=== PATIENT | male | born 1965 | race Caucasian/White ===

== ENCOUNTER → 2016-10-15 | Outpatient (CLI) | payer BC, OTHER ==
[~2016-10-15] VITALS: Ht 185.4 cm; Wt 99.8 kg
[~2016-10-15] MED LIST: NS 1,000 ML IV SCH; PROPOFOL 200 MG/20 ML VIAL As Ordered ONE; no medications
--- NOTE | 2016-10-15 13:58 | ROOR ---
Patient Name: Jose Luis Tilley Procedure Date: 10/15/2016 1:46 PM Date of : 1965 Age: 50 Room: [facility] Gender: Male Note Status: Finalized Procedure: Upper GI endoscopy Indications: Oropharyngeal phase dysphagia, Globus sensation Providers: Marquez ROSARIO MD Referring MD: Shon Allison MD Requesting Provider: Medicines: Monitored Anesthesia Care Complications: No immediate complications. Procedure: Pre-Anesthesia Assessment: - The heart rate, respiratory rate, oxygen saturations, blood pressure, adequacy of pulmonary ventilation, and response to care were monitored throughout the procedure. The Endoscope was introduced through the mouth, and advanced to the second part of duodenum. The upper GI endoscopy was accomplished without difficulty. The patient tolerated the procedure well. Findings: A low-grade of narrowing Schatzki ring (acquired) was found at the gastroesophageal junction. A TTS dilator was passed through the scope. Dilation with an 18-19-20 mm x 8 cm CRE balloon dilator was performed to 18 mm. The dilation site was examined and showed complete resolution of luminal narrowing. Estimated blood loss was minimal. Mucosal changes including longitudinal furrows were found in the entire esophagus. Biopsies were taken with a cold forceps for histology. Small Hiatal Hernia. The entire examined stomach was normal. The examined duodenum was normal. Impression: - Low-grade of narrowing Schatzki ring. Dilated. - Esophageal mucosal changes suggestive of eosinophilic esophagitis. Biopsied. - Small Hiatal Hernia. - Normal stomach. - Normal examined duodenum. Recommendation: - Use Prilosec (omeprazole) 40 mg PO BID. - Telephone endoscopist for pathology results in 2 weeks. - (the script was sent to your pharmacy on file) Marquez Rosario MD Marquez ROSARIO MD 10/15/2016 1:58:46 PM This report has been signed electronically. Number of Addenda: 0 Note Initiated On: 10/15/2016 1:46 PM Estimated Blood Loss: Estimated blood loss: none.
--- NOTE | 2016-10-15 14:07 | ROOR ---
Patient Name: Jose Luis Tilley Procedure Date: 10/15/2016 1:47 PM Date of : 1965 Age: 50 Room: [facility] Gender: Male Note Status: Finalized Procedure: Colonoscopy Indications: Screening for colorectal malignant neoplasm Providers: Marquez ROSARIO MD Referring MD: Shon Allison MD Requesting Provider: Medicines: Monitored Anesthesia Care Complications: No immediate complications. Procedure: Pre-Anesthesia Assessment: - The heart rate, respiratory rate, oxygen saturations, blood pressure, adequacy of pulmonary ventilation, and response to care were monitored throughout the procedure. The Colonoscope was introduced through the anus and advanced to the cecum, identified by appendiceal orifice and ileocecal valve. The colonoscopy was performed without difficulty. The patient tolerated the procedure well. The quality of the bowel preparation was good. Findings: The perianal and digital rectal examinations were normal. A few medium-mouthed diverticula were found in the sigmoid colon. Small Internal Hemorrhoids. The exam was otherwise without abnormality on direct and retroflexion views. (Exam: Complete, Prep: Good or Excellent.) Impression: - Mild diverticulosis in the sigmoid colon. - Small Internal Hemorrhoids. - The examination was otherwise normal on direct and retroflexion views. - No specimens collected. Recommendation: - Repeat colonoscopy in 10 years for screening purposes. Marquez Rosario MD Marquez ROSARIO MD 10/15/2016 2:06:43 PM This report has been signed electronically. Number of Addenda: 0 Note Initiated On: 10/15/2016 1:47 PM Estimated Blood Loss: Estimated blood loss: none.
[2016-10-15 14:40] VITALS: BP 114/73
== END ==
LOC: M OPP 11:08
PROVIDERS: ATTEND Internal Medicine Gastroenterology
DX: Z12.11 Encounter for screening for malignant neoplasm of colon (principal); K57.30 Diverticulosis of large intestine without perforation or abscess without bleeding; K64.8 Other hemorrhoids; R13.12 Dysphagia, oropharyngeal phase; K22.2 Esophageal obstruction; K20.9 Esophagitis, unspecified; F45.8 Other somatoform disorders; K44.9 Diaphragmatic hernia without obstruction or gangrene; Z91.030 Bee allergy status

== ENCOUNTER 2022-01-29 13:38 | Day surgery (SDC) | payer OTHER ==
[~2022-01-29] VITALS: Ht 185.4 cm; Wt 108.9 kg
[~2022-01-29 13:38] MED LIST changes: +LIDOCAINE 2% 100MG/5ML SDV (FOR ANES.) As Ordered ONE; +METO50TA7; +NS 1,000 ML IV ONE; -NS 1,000 ML IV SCH; -PROPOFOL 200 MG/20 ML VIAL As Ordered ONE; +fentaNYL 100 MCG/2 ML INJECTION As Ordered ONE; +propofoL 200 MG/20 ML VIAL As Ordered ONE
[2022-01-29 14:57] VITALS: BP 140/92
== END 2022-01-29 15:02 | disposition home or self-care (01) ==
LOC: M SDC 13:38
PROVIDERS: ATTEND Internal Medicine Gastroenterology
DX: K20.0 Eosinophilic esophagitis (principal); R13.10 Dysphagia, unspecified; R12 Heartburn; K22.2 Esophageal obstruction; K22.89 Other specified disease of esophagus; Z91.030 Bee allergy status; Z79.899 Other long term (current) drug therapy; K44.9 Diaphragmatic hernia without obstruction or gangrene
CPT/HCPCS: 43239; 88305; J3010

== ENCOUNTER → 2022-05-12 | Outpatient (CLI) | payer OTHER ==
[~2022-05-12] MED LIST changes: +EPIN0.3I11; +ERGO500029 PO; -LIDOCAINE 2% 100MG/5ML SDV (FOR ANES.) As Ordered ONE; +METO50TA7 PO; -NS 1,000 ML IV ONE; +OMEP-173 PO; -fentaNYL 100 MCG/2 ML INJECTION As Ordered ONE; -propofoL 200 MG/20 ML VIAL As Ordered ONE
== END ==
LOC: M LABSMTC 11:03
PROVIDERS: ATTEND Anesthesiology
DX: Z01.818 Encounter for other preprocedural examination (principal); Z11.52 Encounter for screening for COVID-19

== ENCOUNTER 2022-05-17 11:54 | Day surgery (SDC) | payer OTHER ==
[~2022-05-17] VITALS: Ht 185.4 cm; Wt 109.8 kg
[~2022-05-17 11:54] MED LIST changes: +NS 1,000 ML IV ONE
[2022-05-17] MEDS ORDERED: propofoL 200 MG/20 ML VIAL As Ordered ONE (13:56)
[2022-05-17] MEDS ORDERED: LIDOCAINE 2% 100MG/5ML SDV (FOR ANES.) As Ordered ONE (13:56)
[2022-05-17 14:30] VITALS: BP 136/83
== END 2022-05-17 15:18 | disposition home or self-care (01) ==
LOC: M OPP 11:54
PROVIDERS: ATTEND Internal Medicine Gastroenterology
DX: K20.0 Eosinophilic esophagitis (principal); K22.89 Other specified disease of esophagus; Z79.899 Other long term (current) drug therapy; Z91.030 Bee allergy status; I49.3 Ventricular premature depolarization; K44.9 Diaphragmatic hernia without obstruction or gangrene; G43.909 Migraine, unspecified, not intractable, without status migrainosus; Z82.69 Family history of other diseases of the musculoskeletal system and connective tissue

== ENCOUNTER → 2023-05-13 | Outpatient (REF) | payer OTHER ==
[~2023-05-13] MED LIST changes: -NS 1,000 ML IV ONE
== END ==
LOC: M SFHCDERM 14:03
PROVIDERS: ATTEND Nurse Practitioner Family
DX: B07.9 Viral wart, unspecified (principal)

== ENCOUNTER → 2023-07-25 | Outpatient (CLI) | payer OTHER ==
[~2023-07-25] MED LIST changes: +ISOVUE-370 76% 100ML VIAL As Ordered ONE
== END ==
LOC: M RAD 07:21
PROVIDERS: ATTEND Otolaryngology
DX: D17.0 Benign lipomatous neoplasm of skin and subcutaneous tissue of head, face and neck (principal)
CPT/HCPCS: 70470; 70491; Q9967

== ENCOUNTER → 2025-05-23 | Outpatient (CLI) | payer OTHER ==
[~2025-05-23] MED LIST changes: -ISOVUE-370 76% 100ML VIAL As Ordered ONE
[2025-05-23 13:33] LABS: ALT/SGPT 27 U/L (7.0-40); AST/SGOT 23 U/L (<34); CALCIUM LEVEL 8.7 MG/DL (8.5-10.1); CARBON DIOXIDE LEVEL 29 MMOL/L (20-31); CHLORIDE LEVEL 108 MMOL/L (98-107); CHOLESTEROL LEVEL 190 MG/DL (<200); CHOLESTEROL RISK RATIO 4.67 (<5); CREATININE FOR GFR 0.88 MG/DL (0.70-1.30); GLOMERULAR FILTRATION RATE > 90.0 (>56); LDL CHOLESTEROL 99.2 MG/DL (<100); NON-HDL-C 149.4 MG/DL; POTASSIUM SERUM 4.4 MMOL/L (3.5-5.1); SODIUM LEVEL 143 MMOL/L (136-145); TRIGLYCERIDES LEVEL 251 MG/DL (<150)
[2025-05-23 14:00] LABS: ESTIMATED AVERAGE GLUCOSE 111.0 MG/DL (60-110)
== END ==
LOC: M WUC 08:44
PROVIDERS: ATTEND Internal Medicine Cardiovascular Disease
DX: I49.3 Ventricular premature depolarization (principal); R94.31 Abnormal electrocardiogram [ECG] [EKG]; E78.2 Mixed hyperlipidemia; Z13.1 Encounter for screening for diabetes mellitus

== ENCOUNTER → 2025-06-13 | Outpatient (CLI) | payer OTHER ==
[2025-06-13 18:00] LABS: CALCIUM LEVEL 8.8 MG/DL (8.5-10.1); CARBON DIOXIDE LEVEL 30 MMOL/L (20-31); CHLORIDE LEVEL 107 MMOL/L (98-107); CREATININE FOR GFR 0.85 MG/DL (0.70-1.30); GLOMERULAR FILTRATION RATE > 90.0 (>56); POTASSIUM SERUM 4.3 MMOL/L (3.5-5.1); SODIUM LEVEL 143 MMOL/L (136-145)
[2025-06-13 18:05] LABS: BASO # 0.1 10^3/uL (0.0-0.2); BASO % 1.1 % (0.0-1.0); EOS # 0.3 10^3/uL (0.0-0.5); EOS % 4.9 % (0.0-3.0); LYMPH # 2.0 10^3/uL (1.5-5.0); LYMPH % 37.7 % (24.0-44.0); MONO # 0.5 10^3/uL (0.0-0.8); MONO % 9.3 % (2.0-8.0); NEUTROPHILS # 2.5 10^3/uL (1.5-8.5); NEUTROPHILS % 46.8 % (36.0-66.0); PLATELET COUNT, AUTOMATED 283 10^3/uL (150-450)
== END ==
LOC: M WUC 14:11
PROVIDERS: ATTEND Internal Medicine Cardiovascular Disease
DX: R53.83 Other fatigue (principal)